=== PATIENT | female | born 1965 | race Caucasian/White ===

== ENCOUNTER → 2017-12-21 | Outpatient (CLI) | payer OTHER ==
[~2017-12-21] MED LIST: TESSALON PERLE100 MG PO; VENTOLIN HFA 1818 GM INH
== END ==
LOC: RAD 09:23
DX: R05 Cough (principal)

== ENCOUNTER → 2018-08-16 | Outpatient (CLI) | payer OTHER | LOC: RAD 01:20 | DX: N64.4 Mastodynia (principal); N63.21 Unspecified lump in the left breast, upper outer quadrant; Z80.3 Family history of malignant neoplasm of breast ==

== ENCOUNTER → 2021-02-20 | Outpatient (CLI) | payer OTHER | LOC: BC 08:15 | PROVIDERS: ATTEND Nurse Practitioner | DX: Z12.31 Encounter for screening mammogram for malignant neoplasm of breast (principal) ==